=== PATIENT | female | born 1995 | race Caucasian/White ===

== ENCOUNTER 2019-06-13 18:45 | Emergency (ER) | payer BC, OTHER ==
[~2019-06-13] VITALS: Ht 170.2 cm; Wt 65.8 kg
[2019-06-13] MEDS ORDERED: IBUPROFEN 600MG TABLET PO ONE (21:15)
[2019-06-13 21:20] VITALS: BP 100/55
== END 2019-06-13 21:20 | disposition home or self-care (01) ==
LOC: ER 18:45
DX: S40.861A Insect bite (nonvenomous) of right upper arm, initial encounter (principal); Z90.49 Acquired absence of other specified parts of digestive tract; W57.XXXA Bitten or stung by nonvenomous insect and other nonvenomous arthropods, initial encounter; Y93.89 Activity, other specified; Y92.018 Other place in single-family (private) house as the place of occurrence of the external cause
CPT/HCPCS: 99282